=== PATIENT | male | born 1935 | race Caucasian/White ===

== ENCOUNTER 2021-02-01 12:22 | Observation (INO) ==
[2021-02-01] MEDS ORDERED: 0.9 % Sodium Chloride 1,000 ML IV ONE ×2 (12:31→14:19)
[2021-02-01] MEDS ORDERED: Insulin Human Regular 10 UNIT in 0.9 % Sodium Chloride 10 ML IV ONE (12:34)
[2021-02-01 12:46] LABS: Basophils % 0.1 %; Hematocrit 40.7 % (37.5-50.1); Hemoglobin 13.4 g/dL (12.9-16.9); Immature Granulocytes % 0.8 % (0-4); Lymphocytes # 2.2 K/mcL (0.6-4.6); Lymphocytes % 15.3 %; Mean Corpuscular HGB Conc 32.9 g/dL (31.6-35.5); Mean Corpuscular Hemoglobin 31.2 pg (28.0-33.3); Mean Corpuscular Volume 94.7 fL (83.0-100.0); Mean Platelet Volume 12.9 fL (9.4-12.4); Monocytes # 0.6 K/mcL (0.0-1.3); Neutrophils # 11.5 K/mcL (1.6-8.9); Platelet Count 219 K/mcL (140-400); Red Cell Distribution Width 12.3 % (11.5-14.5); Segmented Neutrophils % 79.8 %; White Blood Count 14.4 K/mcL (4.3-11.1)
[2021-02-01 13:06] LABS: Albumin 4.5 g/dL (3.5-5.7); Albumin/Globulin Ratio 2.4 (1.1-2.2); Bilirubin,Total 0.6 mg/dL (0.3-1.0); Calcium 9.4 mg/dL (8.6-10.3); Globulin 1.9 g/dL (2.4-3.5); Magnesium 2.2 mg/dL (1.6-2.6); Potassium 4.6 mEq/L (3.5-5.1); Total Protein 6.4 g/dL (6.4-8.9)
[2021-02-01] MEDS ORDERED: *HR* Dextrose 50 % in Water (Vial) 50 ML VIAL IVP PRN ×2 (13:07→16:31)
[2021-02-01 14:35] LABS: Bilirubin,Urine Negative (Negative); Blood,Urine Negative (Negative); Clarity,Urine Clear (Clear); Color,Urine Yellow (Yellow); Glucose,Urine (UA) >=1000 mg/dL (Normal); Ketones,Urine Negative (Negative); Leukocyte Esterase,Urine Negative (Negative); Nitrite,Urine Negative (Negative); PH,Urine 5.5 pH Units (5.0-8.0); Protein,Urine Negative (Neg-Trace); Urobilinogen,Urine Normal (Normal)
[2021-02-01] MEDS ORDERED: Ondansetron 4 MG/2 ML VIAL IVP PRN (16:25)
[2021-02-01] MEDS ORDERED: MOM Conc 10 ML UD.LIQ PO PRN (16:25)
[2021-02-01] MEDS ORDERED: Acetaminophen 325 MG TABLET PO PRN (16:25)
[2021-02-01] MEDS ORDERED: Mag Hydrox/Al Hydrox/Simeth 30 ML UDC PO PRN (16:25)
[2021-02-01] MEDS ORDERED: Naloxone 0.4 MG/ML INJ IVP PRN (16:25)
[2021-02-01] MEDS ORDERED: Ondansetron ODT 4 MG TAB.RAPDIS SL PRN (16:25)
[2021-02-01] MEDS ORDERED: Melatonin 3 MG TABLET PO PRN (16:25)
[2021-02-01] MEDS ORDERED: Dextrose Gel 15 GM/37.5 ML TUBE PO PRN ×2 (16:31)
[2021-02-01] MEDS ORDERED: D5% in Water 1,000 ML IVC PRN (16:31)
[2021-02-01] MEDS ORDERED: Ipratropium/Albuterol Neb 3 ML IH PRN (16:33)
[2021-02-01] MEDS: 0.9 % Sodium Chloride 1,000 ML IVC SCH (17:43)
[2021-02-01 20:19] LABS: BUN/Creatinine Ratio 21 (6-26); Blood Urea Nitrogen 28 mg/dL (8-23); Calcium 8.6 mg/dL (8.6-10.3); Carbon Dioxide 25 mEq/L (23-29); Chloride 104 mEq/L (98-107); Glucose 340 mg/dL (70-105); Osmolality,Calculated 297 (280-300); Potassium 5.3 mEq/L (3.5-5.1); Sodium 134 mEq/L (136-145); eGFR For African Americans > 60 (> 60); eGFR For Non-African Americans 51 (> 60)
[2021-02-01] MEDS ORDERED: Insulin LISPRO 300 UNITS/3 ML VIAL SUBQ SCH (21:00)
[2021-02-01] MEDS ORDERED: Insulin DETEMIR 100 UNIT/ML per UNIT SUBQ ONE (21:00)
[2021-02-01] MEDS: Budesonide/Formoterol 160/4.5 1 PUFF INH IH SCH (21:26)
[2021-02-02] MEDS ORDERED: Melatonin 3 MG TABLET PO ONE (00:49)
[2021-02-02] MEDS: 0.9 % Sodium Chloride 1,000 ML IVC SCH ×2 (00:56→08:43)
[2021-02-02 04:59] LABS: Hematocrit 37.7 % (37.5-50.1); Hemoglobin 12.2 g/dL (12.9-16.9); Mean Corpuscular HGB Conc 32.4 g/dL (31.6-35.5); Mean Corpuscular Hemoglobin 30.9 pg (28.0-33.3); Mean Corpuscular Volume 95.4 fL (83.0-100.0); Mean Platelet Volume 12.9 fL (9.4-12.4); Platelet Count 169 K/mcL (140-400); Red Blood Count 3.95 M/mcL (4.19-5.50); Red Cell Distribution Width 12.3 % (11.5-14.5); White Blood Count 11.4 K/mcL (4.3-11.1)
[2021-02-02 05:16] LABS: Alanine Aminotransferase 26 Units/L (7-52); Albumin 3.3 g/dL (3.5-5.7); Albumin/Globulin Ratio 2.4 (1.1-2.2); Alkaline Phosphatase 53 Units/L (34-104); Aspartate Amino Transferase 20 Units/L (13-39); BUN/Creatinine Ratio 21 (6-26); Bilirubin,Total 0.5 mg/dL (0.3-1.0); Blood Urea Nitrogen 25 mg/dL (8-23); Calcium 8.1 mg/dL (8.6-10.3); Carbon Dioxide 25 mEq/L (23-29); Chloride 108 mEq/L (98-107); Globulin 1.4 g/dL (2.4-3.5); Glucose 188 mg/dL (70-105); Magnesium 1.9 mg/dL (1.6-2.6); Osmolality,Calculated 295 (280-300); Phosphorous 3.3 mg/dL (2.7-4.5); Potassium 4.2 mEq/L (3.5-5.1); Sodium 138 mEq/L (136-145); Total Protein 4.7 g/dL (6.4-8.9); eGFR For African Americans > 60 (> 60); eGFR For Non-African Americans 57 (> 60)
[2021-02-02] MEDS ORDERED: Insulin LISPRO 300 UNITS/3 ML VIAL SUBQ SCH (07:30)
[2021-02-02] MEDS ORDERED: *HR* SitaGLIPtin 100 MG TABLET PO SCH (09:00)
[2021-02-02] MEDS ORDERED: Insulin DETEMIR 100 UNIT/ML X5UNITS SUBQ SCH (09:00)
[2021-02-02] MEDS ORDERED: Isosorbide MONOnitrate (24 HR) 60 MG TAB.ER.24H PO SCH (09:00)
[2021-02-02] MEDS ORDERED: NON-FORMULARY MEDICATION 1 EACH EACH (Insulin Glargine [Lantus] 300 UNIT/3 ML Mls) SUBQ SCH (09:00)
[2021-02-02] MEDS ORDERED: Aspirin 81 MG TAB.CHEW PO SCH (09:00)
[2021-02-02] MEDS: Budesonide/Formoterol 160/4.5 1 PUFF INH IH SCH (10:09)
[2021-02-02 10:20] LABS: Estimated Average Glucose 324 mg/dl; Hemoglobin A1C 12.9 %
[2021-02-02 11:39] VITALS: BP 119/68
== END 2021-02-02 12:50 | disposition home or self-care (01) ==
LOC: INPGRE 12:22 → EMEROOGRE 12:22 → INPGRE 17:00
PROVIDERS: ADMIT Family Medicine; ATTEND Family Medicine